=== PATIENT | female | born 1995 | race African-American/Black ===

== ENCOUNTER 2017-12-15 11:40 | Inpatient (IN) ==
[2017-12-15] MEDS ORDERED: ONDANSETRON 4 MG/2 ML VIAL IV PRN (15:27)
[2017-12-15] MEDS ORDERED: DINOPROSTONE VAG GEL 10 MG SYRINGE VAG ONE (15:30)
[2017-12-15] MEDS: LACTATED RINGERS 1,000 ML IV SCH ×2 (15:47→23:30)
[2017-12-15 16:09] LABS: Basophils % 0.3 % (0.0-0.8); Eosinophils # 0.1 10*3/uL (0.0-0.87); Eosinophils % 1.4 % (0.00-10.9); Hematocrit 37.9 VOL% (35.7-47.0); Hemoglobin 11.8 GM/DL (12.0-16.0); Immature Granulocytes % 0.4 %; Immature Granulocytes Absolute 0.03 #; Lymphocytes # 1.8 10*3/uL (1.4-4.0); Lymphocytes % 23.2 % (21.3-54.2); Mean Corpuscular HGB Conc 31.1 GM/DL (32-36); Mean Corpuscular Hemoglobin 25 PG (27-34); Mean Corpuscular Volume 79.8 FL (87-102); Mean Platelet Volume 12.5 FL (9.6-12.0); Monocytes % 13.3 % (1.7-12.7); Neutrophils # 4.8 10*3/uL (1.4-7.4); Neutrophils % 61.4 % (38.7-73.9); Platelet Count 229 T/CUMM (130-400); Red Blood Count 4.75 MC/CUMM (3.8-5.5); Red Cell Distribution Width 15.1 % (9.3-17.3); White Blood Count 7.7 T/CUMM (4-12)
[2017-12-16] MEDS ORDERED: BUTORPHANOL 1 MG/ML VIAL IV PRN (01:30)
[2017-12-16] MEDS ORDERED: OXYTOCIN/LR 20 UNIT/1,000 ML BAG IV SCH (03:30)
[2017-12-16] MEDS ORDERED: CITRIC ACID/SODIUM CITRATE 30 ML UDCUP PO ONE (08:18)
[2017-12-16] MEDS ORDERED: OXYTOCIN 10 UNIT/ML VIAL IM ONE (08:19)
[2017-12-16] MEDS ORDERED: CLINDAMYCIN INJ 900 MG in PREMIX 1 EACH IV ONE (08:19)
[2017-12-16] MEDS ORDERED: hydrOXYzine HCL 25 MG/1 ML VIAL IM PRN (08:23)
[2017-12-16] MEDS ORDERED: PROMETHAZINE 25 MG/1 ML VIAL IM ONE (08:23)
[2017-12-16] MEDS ORDERED: FAMOTIDINE 20 MG/2 ML VIAL IV ONE (08:23)
[2017-12-16 10:10] LABS: Cord Arterial Blood HCO3 21.3 MMOL/L
[2017-12-16] MEDS ORDERED: MORPHINE 10 MG/10 ML VIAL ONE (10:12)
[2017-12-16 10:13] LABS: Cord Venous Blood HCO3 22.5 MMOL/L; Cord Venous Blood PCO2 48.1 MMHG; Cord Venous Blood PO2 21.7
[2017-12-16] MEDS ORDERED: KETAMINE 500 MG/10 ML VIAL ONE (10:13)
[2017-12-16] MEDS ORDERED: MIDAZOLAM 2 MG/2 ML VIAL ONE (10:13)
[2017-12-16] MEDS: LACTATED RINGERS 1,000 ML IV SCH (10:16)
[2017-12-16 10:56] LABS: Apearance,Urine CLEAR (Clear); Bacteria,Urine Occasional /HPF (Few); Bilirubin,Urine Negative (Negative); Blood, Urine Negative (Negative); Glucose,Urine (UA) Negative (Negative); Ketones,Urine Negative (Negative); Mucus,Urine Occasional /LPF (Occasional); Nitrite,Urine Negative (Negative); Protein,Urine Negative; RBC,Urine 1 /HPF (0-4); Urine Color Straw (Yellow); Urine Specific Gravity 1.005 (1.001-1.035); Urine Urobilinogen < 2.0 EU/DL (0.2-1.0); WBC,Urine <1 /HPF (0-6)
[2017-12-16] MEDS ORDERED: HYDROmorphone 2 MG/1 ML VIAL IV PRN (12:41)
[2017-12-16] MEDS: diphenhydrAMINE 50 MG/1 ML VIAL IV PRN ×2 (12:55→16:04)
[2017-12-16] MEDS ORDERED: ceFAZolin 1,000 MG in SYRINGE 1 EACH IV SCH (13:30)
[2017-12-16] MEDS ORDERED: RHO(D) IMMUNE GLOBULIN 300 MCG SYRINGE IM ONE (13:30)
[2017-12-16] MEDS ORDERED: LACTATED RINGERS 1,000 ML IV SCH (13:30)
[2017-12-16] MEDS ORDERED: ONDANSETRON 4 MG/2 ML VIAL IV PRN (13:30)
[2017-12-16] MEDS ORDERED: OXYTOCIN/LR 20 UNIT/1,000 ML BAG IV ONE (13:30)
[2017-12-16] MEDS ORDERED: ACETAMINOPHEN 325 MG TABLET PO PRN (13:30)
[2017-12-16] MEDS ORDERED: diphenhydrAMINE 50 MG/1 ML VIAL ONE (15:58)
[2017-12-16 17:46] LABS: Basophils % 0.2 % (0.0-0.8); Eosinophils % 0.4 % (0.00-10.9); Hematocrit 36.4 VOL% (35.7-47.0); Hemoglobin 11.4 GM/DL (12.0-16.0); Immature Granulocytes % 0.4 %; Immature Granulocytes Absolute 0.04 #; Lymphocytes # 1.6 10*3/uL (1.4-4.0); Lymphocytes % 17.6 % (21.3-54.2); Mean Corpuscular HGB Conc 31.3 GM/DL (32-36); Mean Corpuscular Hemoglobin 25 PG (27-34); Mean Corpuscular Volume 79.5 FL (87-102); Monocytes # 0.9 10*3/uL (0.11-0.8); Monocytes % 9.2 % (1.7-12.7); Neutrophils # 6.6 10*3/uL (1.4-7.4); Neutrophils % 72.2 % (38.7-73.9); Platelet Count 216 T/CUMM (130-400); Red Blood Count 4.58 MC/CUMM (3.8-5.5); Red Cell Distribution Width 14.9 % (9.3-17.3); White Blood Count 9.2 T/CUMM (4-12)
[2017-12-16] MEDS: CLINDAMYCIN INJ 900 MG in PREMIX 1 EACH IV SCH (17:48)
[2017-12-16] MEDS: IBUPROFEN 800 MG TABLET PO PRN (20:01)
[2017-12-16] MEDS: DOCUSATE SODIUM 100 MG CAPSULE PO SCH (21:25)
[2017-12-17] MEDS: CLINDAMYCIN INJ 900 MG in PREMIX 1 EACH IV SCH (01:56)
[2017-12-17 05:05] LABS: Basophils % 0.2 % (0.0-0.8); Eosinophils # 0.1 10*3/uL (0.0-0.87); Hematocrit 35.6 VOL% (35.7-47.0); Hemoglobin 11.2 GM/DL (12.0-16.0); Immature Granulocytes % 0.3 %; Immature Granulocytes Absolute 0.03 #; Lymphocytes # 1.6 10*3/uL (1.4-4.0); Lymphocytes % 18.4 % (21.3-54.2); Mean Corpuscular HGB Conc 31.5 GM/DL (32-36); Mean Corpuscular Hemoglobin 25 PG (27-34); Mean Corpuscular Volume 78.8 FL (87-102); Mean Platelet Volume 11.3 FL (9.6-12.0); Monocytes # 0.9 10*3/uL (0.11-0.8); Monocytes % 10.4 % (1.7-12.7); Neutrophils # 6.2 10*3/uL (1.4-7.4); Neutrophils % 69.7 % (38.7-73.9); Platelet Count 197 T/CUMM (130-400); Red Blood Count 4.52 MC/CUMM (3.8-5.5); Red Cell Distribution Width 15.1 % (9.3-17.3); White Blood Count 8.9 T/CUMM (4-12)
[2017-12-17] MEDS: DOCUSATE SODIUM 100 MG CAPSULE PO SCH ×3 (08:58→21:36)
[2017-12-17] MEDS: MAGNESIUM HYDROXIDE SUSP 30 ML UDCUP PO PRN ×2 (08:58→19:43)
[2017-12-17] MEDS: SIMETHICONE CHEW 80 MG TABLET PO PRN ×2 (08:58→19:44)
[2017-12-17] MEDS ORDERED: MULTIVITAMIN (PRENATAL) TABLET PO SCH (09:00)
[2017-12-17] MEDS ORDERED: diphenhydrAMINE CAP 25 MG CAPSULE PO PRN (19:27)
[2017-12-17] MEDS: IBUPROFEN 800 MG TABLET PO PRN (23:42)
[2017-12-18] MEDS ORDERED: MAGNESIUM CITRATE 300 ML BOTTLE PO ONE (07:05)
[2017-12-18 07:52] VITALS: BP 136/77
[2017-12-18] MEDS ORDERED: DIPH/TET/ACEL PERT BOOSTER VACCINE 0.5 ML VIAL IM ONE (11:54)
== END 2017-12-18 14:55 | disposition home or self-care (01) | DRG 765 ==
LOC: N.LAB 11:40 → N.LD 11:42 → N.OB 12-16 13:12
PROVIDERS: ADMIT Obstetrics & Gynecology; ATTEND Obstetrics & Gynecology
PROC: LDCSECT (ICD-10-PCS; 2017-12-16 09:00)

== ENCOUNTER 2020-08-09 10:13 | Inpatient (IN) ==
[2020-08-09] MEDS ORDERED: FAMOTIDINE 20 MG/2 ML VIAL IV ONE (10:27)
[2020-08-09] MEDS ORDERED: CITRIC ACID/SODIUM CITRATE 30 ML UDCUP PO ONE (10:27)
[2020-08-09] MEDS ORDERED: OXYTOCIN 10 UNIT/ML VIAL IM ONE (10:28)
[2020-08-09] MEDS ORDERED: OXYTOCIN/LR 30 UNIT/1,000 ML BAG IV ONE (10:29)
[2020-08-09] MEDS ORDERED: LACTATED RINGERS 1,000 ML IV SCH ×2 (10:30→14:00)
[2020-08-09] MEDS ORDERED: CLINDAMYCIN INJ 900 MG in PREMIX 1 EACH IV ONE (10:57)
[2020-08-09 11:30] LABS: Basophils % 0.3 % (0.0-0.8); Eosinophils # 0.1 10*3/uL (0.0-0.87); Eosinophils % 1.7 % (0.00-10.9); Hematocrit 33.8 VOL% (35.7-47.0); Hemoglobin 10.6 GM/DL (12.0-16.0); Immature Granulocytes % 0.4 %; Immature Granulocytes Absolute 0.03 #; Lymphocytes # 1.7 10*3/uL (1.4-4.0); Lymphocytes % 21.9 % (21.3-54.2); Mean Corpuscular HGB Conc 31.4 GM/DL (32-36); Mean Corpuscular Volume 75.6 FL (87-102); Mean Platelet Volume 11.3 FL (9.6-12.0); Monocytes % 11.1 % (1.7-12.7); Neutrophils % 64.6 % (38.7-73.9); Platelet Count 263 T/CUMM (130-400); Red Blood Count 4.47 MC/CUMM (3.8-5.5); Red Cell Distribution Width 15.9 % (9.3-17.3); White Blood Count 7.6 T/CUMM (4-12)
[2020-08-09 11:54] LABS: Alanine Aminotransferase 16 U/L (13-56); Albumin 2.7 G/DL (3.4-5.0); Alkaline Phosphatase 258 U/L (45-117); Aspartate Amino Transferase 17 U/L (0-37); Bilirubin,Total < 0.39 MG/DL (0.2-1.0); Blood Urea Nitrogen 7 MG/DL (7-18); Calcium 9.2 MG/DL (8.5-10.1); Estimated Glom Filtration Rate 165 ML/MIN; Glucose 66 MG/DL (74-106); Osmolality,Calculated 268.8 MOS/KG (273-304); Total Protein 7.1 G/DL (6.4-8.3)
[2020-08-09] MEDS ORDERED: TRANEXAMIC ACID 1,000 MG/10 ML VIAL ONE (12:38)
[2020-08-09] MEDS ORDERED: miSOPROStoL 200 MCG TABLET ONE (12:38)
[2020-08-09] MEDS ORDERED: METHYLERGONOVINE 0.2 MG/1 ML AMP ONE (12:39)
[2020-08-09] MEDS ORDERED: CARBOPROST TROMETHAMINE 250 MCG/ML AMP IM ONE (12:39)
[2020-08-09] MEDS ORDERED: SODIUM CHLORIDE 0.9% 100 ML IV ONE (12:39)
[2020-08-09] MEDS ORDERED: ONDANSETRON 4 MG/2 ML VIAL IV PRN (13:50)
[2020-08-09] MEDS ORDERED: OXYTOCIN/LR 20 UNIT/1,000 ML BAG IV ONE ×2 (13:50→16:42)
[2020-08-09] MEDS ORDERED: MAGNESIUM HYDROXIDE SUSP 30 ML UDCUP PO PRN (13:50)
[2020-08-09] MEDS ORDERED: IBUPROFEN 800 MG TABLET PO PRN (13:50)
[2020-08-09] MEDS ORDERED: ACETAMINOPHEN 325 MG TABLET PO PRN ×2 (13:50→16:42)
[2020-08-09] MEDS ORDERED: RHO(D) IMMUNE GLOBULIN 300 MCG SYRINGE IM ONE ×2 (13:50→16:42)
[2020-08-09] MEDS ORDERED: SIMETHICONE CHEW 80 MG TABLET PO PRN (13:50)
[2020-08-09] MEDS ORDERED: MORPHINE 10 MG/10 ML VIAL ONE (13:55)
[2020-08-09] MEDS ORDERED: BUPIVACAINE SPINAL 0.75% 2 ML AMP SPINAL ONE (13:56)
[2020-08-09] MEDS ORDERED: MIDAZOLAM 2 MG/2 ML VIAL ONE (13:56)
[2020-08-09] MEDS ORDERED: ceFAZolin 1,000 MG in SYRINGE 1 EACH IV SCH (14:00)
[2020-08-09 14:04] LABS: Cord Venous Blood HCO3 20.6 MMOL/L; Cord Venous Blood PCO2 40.1 MMHG; Cord Venous Blood PO2 23.2
[2020-08-09 14:05] LABS: Bacteria,Urine Occasional /HPF (Few); Bilirubin,Urine Negative (Negative); Blood, Urine Negative (Negative); Glucose,Urine (UA) Negative (Negative); Ketones,Urine 20 mg/dL (Negative); Mucus,Urine Occasional /LPF (Occasional); Nitrite,Urine Negative (Negative); Protein,Urine Negative; RBC,Urine <1 /HPF (0-4); Urine Appearance CLEAR (Clear); Urine Color Yellow (Yellow); Urine Specific Gravity 1.016 (1.001-1.035); Urine Urobilinogen < 2.0 EU/DL (0.2-1.0); WBC,Urine 1 /HPF (0-6)
[2020-08-09] MEDS ORDERED: HYDROmorphone 2 MG/1 ML VIAL IV PRN (14:51)
[2020-08-09] MEDS: diphenhydrAMINE 50 MG/1 ML VIAL IV PRN ×2 (15:03→18:53)
[2020-08-09] MEDS ORDERED: WITCH HAZEL PADS 100/JAR TOP PRN (16:42)
[2020-08-09] MEDS ORDERED: BISACODYL 10 MG SUPP RECTAL PRN (16:42)
[2020-08-09] MEDS ORDERED: DIPH/TET/ACEL PERT BOOSTER VACCINE 0.5 ML VIAL IM ONE (16:42)
[2020-08-09] MEDS ORDERED: oxyCODONE/ACETAMINOPHEN 5-325 MG TABLET PO PRN (16:42)
[2020-08-09] MEDS ORDERED: HYDROCORTISONE 2.5% RECTAL CREAM 30 GM TUBE TOP PRN (16:42)
[2020-08-09] MEDS ORDERED: BENZOCAINE 20%/MENTHOL 0.5% SPRAY 56 GM CAN TOP PRN (16:42)
[2020-08-09] MEDS ORDERED: MEASLES/MUMPS/RUBELLA VACCINE 0.5 ML VIAL SUBCUT ONE (16:42)
[2020-08-09] MEDS ORDERED: LANOLIN 50% CREAM 0.3 OZ TUBE TOP PRN (16:42)
[2020-08-09] MEDS ORDERED: hydrOXYzine HCL 25 MG/1 ML VIAL IM PRN (16:48)
[2020-08-09] MEDS: oxyCODONE/ACETAMINOPHEN 5-325 MG TABLET PO PRN (18:45)
[2020-08-09] MEDS ORDERED: KETOROLAC 30 MG/1 ML VIAL IV PRN (19:57)
[2020-08-09] MEDS ORDERED: diphenhydrAMINE 2% CREAM 28 GM TUBE TOP PRN (19:58)
[2020-08-09] MEDS: DOCUSATE SODIUM 100 MG CAPSULE PO SCH (20:10)
[2020-08-09] MEDS ORDERED: DOCUSATE SODIUM 100 MG CAPSULE PO SCH (21:00)
[2020-08-09] MEDS: CLINDAMYCIN INJ 900 MG in PREMIX 1 EACH IV SCH (21:31)
[2020-08-09 22:15] LABS: Basophils % 0.2 % (0.0-0.8); Eosinophils # 0.1 10*3/uL (0.0-0.87); Eosinophils % 1.1 % (0.00-10.9); Hematocrit 31.5 VOL% (35.7-47.0); Hemoglobin 9.7 GM/DL (12.0-16.0); Immature Granulocytes % 0.3 %; Immature Granulocytes Absolute 0.03 #; Lymphocytes % 22.9 % (21.3-54.2); Mean Corpuscular HGB Conc 30.8 GM/DL (32-36); Mean Corpuscular Volume 76.3 FL (87-102); Mean Platelet Volume 11.6 FL (9.6-12.0); Monocytes % 9.3 % (1.7-12.7); Neutrophils % 66.2 % (38.7-73.9); Platelet Count 227 T/CUMM (130-400); Red Blood Count 4.13 MC/CUMM (3.8-5.5); Red Cell Distribution Width 15.6 % (9.3-17.3); White Blood Count 8.8 T/CUMM (4-12)
[2020-08-10] MEDS: oxyCODONE/ACETAMINOPHEN 5-325 MG TABLET PO PRN ×3 (00:24→11:45)
[2020-08-10] MEDS: CLINDAMYCIN INJ 900 MG in PREMIX 1 EACH IV SCH (05:34)
[2020-08-10 05:55] LABS: Basophils % 0.3 % (0.0-0.8); Eosinophils # 0.1 10*3/uL (0.0-0.87); Eosinophils % 1.8 % (0.00-10.9); Hematocrit 31.7 VOL% (35.7-47.0); Hemoglobin 9.6 GM/DL (12.0-16.0); Immature Granulocytes % 0.3 %; Immature Granulocytes Absolute 0.02 #; Lymphocytes # 1.8 10*3/uL (1.4-4.0); Lymphocytes % 22.5 % (21.3-54.2); Mean Corpuscular HGB Conc 30.3 GM/DL (32-36); Mean Corpuscular Volume 76.4 FL (87-102); Mean Platelet Volume 11.5 FL (9.6-12.0); Monocytes % 10.7 % (1.7-12.7); Neutrophils % 64.4 % (38.7-73.9); Platelet Count 213 T/CUMM (130-400); Red Blood Count 4.15 MC/CUMM (3.8-5.5); Red Cell Distribution Width 15.9 % (9.3-17.3)
[2020-08-10] MEDS ORDERED: MULTIVITAMIN (PRENATAL) TABLET PO SCH (09:00)
[2020-08-10] MEDS: DOCUSATE SODIUM 100 MG CAPSULE PO SCH ×2 (09:56→20:55)
[2020-08-10] MEDS: MAGNESIUM HYDROXIDE SUSP 30 ML UDCUP PO SCH ×2 (09:56→20:55)
[2020-08-10] MEDS: METOCLOPRAMIDE 10 MG TABLET PO SCH ×2 (09:57→16:51)
[2020-08-11] MEDS: METOCLOPRAMIDE 10 MG TABLET PO SCH ×2 (00:04→08:31)
[2020-08-11] MEDS: oxyCODONE/ACETAMINOPHEN 5-325 MG TABLET PO PRN ×2 (00:04→06:12)
[2020-08-11] MEDS: IBUPROFEN 800 MG TABLET PO PRN ×3 (00:05→11:53)
[2020-08-11] MEDS: MAGNESIUM HYDROXIDE SUSP 30 ML UDCUP PO SCH (08:32)
[2020-08-11] MEDS: DOCUSATE SODIUM 100 MG CAPSULE PO SCH (08:34)
[2020-08-11 09:33] VITALS: BP 143/74
== END 2020-08-11 12:55 | disposition home or self-care (01) | DRG 788 ==
LOC: N.LDOUT 10:13 → N.LD 10:16 → N.OB 16:36
PROVIDERS: ADMIT Obstetrics & Gynecology; ATTEND Obstetrics & Gynecology
PROC: LDCSECT (ICD-10-PCS; 2020-08-09 12:30)